=== PATIENT | female | born 1990 | race Caucasian/White ===

== ENCOUNTER → 2020-01-15 10:45 | Outpatient (CLI) | payer BC, SELFPAY | PROVIDERS: PCP Nurse Practitioner Family; Visit Provider Urology | DX: R07.9 Chest pain, unspecified (principal); R00.2 Palpitations; F41.9 Anxiety disorder, unspecified | CPT/HCPCS: 93225; 93226 ==

== ENCOUNTER → 2021-02-23 11:42 | Outpatient (CLI) | payer BC, SELFPAY ==
--- NOTE | 2021-02-23 11:53 | XR_ITS ---
PROCEDURE: XR MANDIBLE MIN 4V CLINICAL INDICATION: JAW PAIN COMPARISON: No exams were available for comparison FINDINGS: No fracture or dislocation. No lytic or blastic change. There is normal mineralization. Other findings:Radiopaque caps over the maxillary and mandibular incisors IMPRESSION: No acute finding. Consider CT for more thorough evaluation if symptoms persist. Dictated by: Hardeep Morse MD 02/23/2021 12:38 Hardeep Morse MD in [facility] 02/23/2021 12:38
== END ==
PROVIDERS: PCP Nurse Practitioner Family; Visit Provider Nurse Practitioner Family
DX: R68.84 Jaw pain (principal)
CPT/HCPCS: 70110

== ENCOUNTER → 2021-09-20 07:31 | Outpatient (CLI) | payer BC, SELFPAY ==
--- NOTE | 2021-09-20 07:40 | CT_ITS ---
PROCEDURE: CT SINUS WO CON CLINICAL HISTORY: ACUTE SINUSITIS COMPARISON: No exams were available for comparison TECHNIQUE: Axial images obtained with sagittal and coronal reformats. All CT scans at the facility use one or more dose reduction, viz: automated exposure control, ma/kV adjustment per patient size (including targeted exams where dose is matched to indication, i.e. head), or iterative reconstruction technique. FINDINGS: No mucosal thickening, air-fluid levels, or sinus mass. 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 The ostiomeatal units are patent. Unremarkable orbits. There is slight asymmetric increased soft tissue density in the right fossa of Rosenmuller and torus tubarius. Direct visualization suggested. Scattered small nodes are present in the neck which are incompletely imaged. Unremarkable TMJs. The mastoid air cells have an unremarkable appearance. The middle ears are aerated. IMPRESSION: No evidence of acute sinusitis. 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 Direct visualization suggested. Dictated by: Hardeep Morse MD 09/21/2021 12:58 Hardeep Morse MD in [facility] 09/21/2021 12:58
== END ==
PROVIDERS: PCP Nurse Practitioner; Visit Provider Nurse Practitioner
DX: J01.00 Acute maxillary sinusitis, unspecified (principal)
CPT/HCPCS: 70486

== ENCOUNTER → 2023-04-05 12:00 | Outpatient (CLI) | payer BC, SELFPAY ==
[2023-04-05 18:42] LABS: Basophils # 0.1 K/mm3 (0-0.2); Basophils % 1.1 % (0.1-2.0); Eosinophils # 0.1 K/mm3 (0.0-0.4); Eosinophils % 1.5 % (0.1-12.0); Hematocrit 39.3 % (37.0-47.0); Hemoglobin 12.8 g/dL (12.2-16.2); Lymphocytes # 1.2 K/mm3 (0.7-4.5); Lymphocytes % 25.8 % (10-50); Mean Corpuscular HGB Conc 32.6 g/dL (31.8-35.4); Mean Corpuscular Hemoglobin 25.8 pg (27.0-31.2); Mean Corpuscular Volume 79.3 fl (81-99); Mean Platelet Volume 11.9 fl (7.4-10.4); Monocytes # 0.4 K/mm3 (0.1-1.0); Monocytes % 7.4 % (1.7-9.3); Neutrophils % 64.2 % (37.0-80.0); Platelet Count 233 K/mm3 (142-424); Red Blood Count 4.96 M/mm3 (4.20-5.40); Red Cell Distribution Width 16.1 % (11.5-17.5); White Blood Count 4.7 K/mm3 (4.8-10.8)
[2023-04-05 19:07] LABS: Alanine Aminotransferase 14 U/L (12-78); Albumin Level 4.7 g/dl (3.5-5.0); Albumin/Globulin Ratio 1.7 (1.1-1.8); Alkaline Phosphatase 86 U/L (38-126); Anion Gap 17.5 mEq/L (5-15); Aspartate Amino Transferase 30 U/L (14-36); Bilirubin,Total 0.5 mg/dl (0.2-1.3); Blood Urea Nitrogen 5 mg/dl (7-17); Carbon Dioxide 26 mmol/L (22.0-30.0); Chloride 99 mmol/L (98-107); Estimated Glomerular Filt Rate 116 ml/min (>60); GFR (African American) 140 ML/MIN (>60); Globulin 2.8 g/dL (1.3-3.2); Glucose 82 mg/dl (74-100); Potassium 4.5 mmoL/L (3.5-5.1); Sodium 138 mmol/L (136-145); Total Protein,Serum 7.5 g/dl (6.3-8.2)
[2023-04-05 19:39] LABS: Iron 67 ug/dL (37-170)
[2023-04-05 19:40] LABS: Thyroid Stimulating Hormone 1.44 uIU/mL (0.465-4.68); Total Iron Binding Capacity 443 ug/dL (265-497)
== END ==
LOC: LAB.DROPOF 05-05 14:17
PROVIDERS: PCP Nurse Practitioner Family; Visit Provider Nurse Practitioner Family
DX: I10 Essential (primary) hypertension (principal); R53.83 Other fatigue; G47.00 Insomnia, unspecified; Z86.2 Personal history of diseases of the blood and blood-forming organs and certain disorders involving the immune mechanism
CPT/HCPCS: 80053; 83540; 83550; 84443; 85025